=== PATIENT | male | born 1955 | race Hispanic/Latino ===

== ENCOUNTER 2018-03-13 09:34 | Day surgery (SDC) | payer MEDICAID ==
[~2018-03-13] VITALS: Ht 172.7 cm; Wt 53.3 kg
[~2018-03-13 09:34] MED LIST: SODIUM CHLORIDE 0.9% 1000ML 1,000 ML IV ONE
[2018-03-13 09:45] VITALS: BP 96/58
[2018-03-13] MEDS ORDERED: UNKNOWN MED PO (10:16)
[2018-03-13] MEDS ORDERED: INVEGA PO (10:16)
[2018-03-13] MEDS ORDERED: ZOLOFT PO (10:16)
[2018-03-13] MEDS ORDERED: OMEP40CA37 PO (10:16)
[2018-03-13] MEDS ORDERED: CLON2TAB11 PO (10:16)
[2018-03-13] MEDS ORDERED: PROPOFOL 10 MG/ML 20ML VIAL IV ONE (10:36)
== END 2018-03-13 11:55 | disposition home or self-care (01) ==
LOC: DAH 09:34 → ENDO 09:34
PROVIDERS: ATTEND Internal Medicine
DX: K29.50 Unspecified chronic gastritis without bleeding (principal); K21.0 Gastro-esophageal reflux disease with esophagitis; F41.9 Anxiety disorder, unspecified; Z79.899 Other long term (current) drug therapy; F32.9 Major depressive disorder, single episode, unspecified; Z98.890 Other specified postprocedural states; B19.20 Unspecified viral hepatitis C without hepatic coma; K44.9 Diaphragmatic hernia without obstruction or gangrene; K22.2 Esophageal obstruction
CPT/HCPCS: 43239; 43249; 88305; 88312; A4606; J2704; J7030

== ENCOUNTER 2018-12-26 06:58 | Day surgery (SDC) | payer MEDICAID ==
[~2018-12-26] VITALS: Ht 170.2 cm; Wt 60.1 kg
[~2018-12-26 06:58] MED LIST changes: +CLON2TAB11 PO; +INVEGA PO; +OMEP40CA37 PO; +SERT100T PO; +[UNRECOGNIZED DRUG - OTHER] PO
[2018-12-26 07:17] VITALS: BP 110/64
[2018-12-26] MEDS ORDERED: PROPOFOL 10 MG/ML 20ML VIAL IV ONE (07:46)
[2018-12-26 08:00] VITALS: BP 81/44
[2018-12-26 08:04] VITALS: BP 86/50
[2018-12-26 08:09] VITALS: BP 89/52
[2018-12-26 08:15] VITALS: BP 93/54
[2018-12-26 08:21] VITALS: BP 106/56
--- NOTE | 2018-12-26 08:35 | NUR ---
Update [facility] called to supervisor picking crew the patient, awaiting ride.
== END 2018-12-26 09:15 | disposition home or self-care (01) ==
LOC: ENDO 06:58 → DAH 06:58 → ENDO 09:15
PROVIDERS: ATTEND Internal Medicine
DX: K31.89 Other diseases of stomach and duodenum (principal); K86.89 Other specified diseases of pancreas; F41.9 Anxiety disorder, unspecified; F32.9 Major depressive disorder, single episode, unspecified; Z79.899 Other long term (current) drug therapy; Z98.890 Other specified postprocedural states; Z86.010 Personal history of colon polyps; K21.0 Gastro-esophageal reflux disease with esophagitis
CPT/HCPCS: 43237; A4606; J2704; J7030; 43231

== ENCOUNTER 2019-03-19 07:05 | Day surgery (SDC) | payer MEDICAID ==
[2019-03-19] VITALS (7 sets, daily range): BP systolic 101–115; BP diastolic 52–64
[~2019-03-19] VITALS: Ht 167.6 cm; Wt 60.3 kg
[2019-03-19 07:44] LABS: POTASSIUM 3.6 mmol/L (3.5-5.1)
[2019-03-19 07:49] LABS: ALBUMIN 3.7 g/dL (3.5-5.0); BILIRUBIN,TOTAL 0.5 mg/dL (0.2-1.0)
[2019-03-19 07:52] LABS: INR 0.99 (0.85-1.15); PROTHROMBIN TIME 10.4 SEC (9.6-11.6)
[2019-03-19] MEDS ORDERED: PROPOFOL 10 MG/ML 20ML VIAL IV ONE (08:00)
[2019-03-19 08:05] LABS: BASOPHILS % (AUTO) 0.9 % (0.0-5.0); EOSINOPHILS % (AUTO) 2.6 % (0.0-8.0); HEMATOCRIT 34.6 % (42-54); LYMPHOCYTES % (AUTO) 32.8 % (21.0-51.0); MEAN CORPUSCULAR HEMOGLOBIN 34.4 pg (27.0-33.0); MEAN CORPUSCULAR HGB CONC 34.4 g/dL (32.0-36.0); MEAN CORPUSCULAR VOLUME 99.8 fL (79-99); MONOCYTES % (AUTO) 9.5 % (3.0-13.0); NEUTROPHILS % (AUTO) 54.2 % (40.0-77.0); NUCLEATED RED BLOOD CELLS 0.1 % (0.0-0.19); PLATELET COUNT (AUTO) 152 K/uL (130-400); RED BLOOD CELL COUNT(AUTO) 3.47 MIL/uL (4.50-6.20); WHITE BLOOD COUNT (AUTO) 3.3 K/uL (4.8-10.8)
[2019-03-19] MEDS ORDERED: EPHEDRINE SULFATE 50 MG/ML AMPULE ONE (08:11)
== END 2019-03-19 08:51 | disposition home or self-care (01) ==
LOC: ENDO 07:05 → DAH 07:05 → ENDO 08:21
PROVIDERS: ATTEND Internal Medicine Gastroenterology
DX: K29.50 Unspecified chronic gastritis without bleeding (principal); K21.9 Gastro-esophageal reflux disease without esophagitis; F41.9 Anxiety disorder, unspecified; F32.9 Major depressive disorder, single episode, unspecified; Z98.890 Other specified postprocedural states; Z79.899 Other long term (current) drug therapy; Z86.010 Personal history of colon polyps; K44.9 Diaphragmatic hernia without obstruction or gangrene; B18.2 Chronic viral hepatitis C
CPT/HCPCS: 36415; 43239; 80053; 82105; 82172; 82247; 82977; 83010; 83883; 84460; 85025; 85610; 88305; J2704; J3490; J7030

== ENCOUNTER 2019-07-11 07:24 | Day surgery (SDC) | payer MEDICAID ==
[~2019-07-11] VITALS: Ht 167.6 cm; Wt 60.0 kg
[2019-07-11] VITALS (7 sets, daily range): BP systolic 121–142; BP diastolic 68–86
[2019-07-11 10:02] LABS: BASOPHILS % (AUTO) 0.6 % (0.0-5.0); EOSINOPHILS % (AUTO) 1.7 % (0.0-8.0); HEMATOCRIT 38.4 % (42-54); MEAN CORPUSCULAR HEMOGLOBIN 34.6 pg (27.0-33.0); MEAN CORPUSCULAR HGB CONC 34.7 g/dL (32.0-36.0); MEAN CORPUSCULAR VOLUME 99.6 fL (79-99); MONOCYTES % (AUTO) 7.6 % (3.0-13.0); NEUTROPHILS % (AUTO) 71.1 % (40.0-77.0); PLATELET COUNT (AUTO) 169 K/uL (130-400); RED BLOOD CELL COUNT(AUTO) 3.85 MIL/uL (4.50-6.20); RED CELL DISTRIBUTION WIDTH 13.3 % (11.0-15.5); WHITE BLOOD COUNT (AUTO) 4.7 K/uL (4.8-10.8)
[2019-07-11] MEDS ORDERED: MIRT7.5T11 PO (10:03)
[2019-07-11] MEDS ORDERED: AMYL1CAP63 PO (10:03)
[2019-07-11] MEDS ORDERED: ESOM40CA54 PO (10:03)
[2019-07-11 10:19] LABS: PROTHROMBIN TIME 10.5 SEC (9.6-11.6)
[2019-07-11] MEDS ORDERED: GLYCOPYRROLATE 0.2 MG/ML 5 ML VIAL ONE (10:57)
== END 2019-07-11 12:00 | disposition home or self-care (01) ==
LOC: DAH 07:24 → ENDO 07:24
PROVIDERS: ATTEND Internal Medicine
DX: K86.89 Other specified diseases of pancreas (principal); K31.89 Other diseases of stomach and duodenum; B19.20 Unspecified viral hepatitis C without hepatic coma; F17.210 Nicotine dependence, cigarettes, uncomplicated; K21.9 Gastro-esophageal reflux disease without esophagitis; F41.9 Anxiety disorder, unspecified; F32.9 Major depressive disorder, single episode, unspecified; Z98.890 Other specified postprocedural states; Z72.89 Other problems related to lifestyle; Z79.899 Other long term (current) drug therapy; Z86.010 Personal history of colon polyps; F20.89 Other schizophrenia; Z82.3 Family history of stroke; Z83.3 Family history of diabetes mellitus; Z82.49 Family history of ischemic heart disease and other diseases of the circulatory system
CPT/HCPCS: 36415; 43237; 85025; 85610; J3490; J7030